=== PATIENT | female | born 2000 | race Two or more races ===

== ENCOUNTER 2022-05-26 22:17 | Emergency (ER) | payer SELFPAY ==
[~2022-05-26] VITALS: Ht 167.6 cm; Wt 99.5 kg
[~2022-05-26 22:17] MED LIST: NO HOME MEDS
[2022-05-26 22:18] VITALS: BP 144/88
== END 2022-05-27 07:58 | disposition left against medical advice (07) ==
LOC: ER 22:18
DX: M25.511 Pain in right shoulder (principal); Z53.21 Procedure and treatment not carried out due to patient leaving prior to being seen by health care provider
CPT/HCPCS: 73030; 99283

== ENCOUNTER 2024-07-14 23:00 | Emergency (ER) | payer BC ==
[~2024-07-14] VITALS: Ht 167.6 cm; Wt 90.9 kg
[2024-07-14 23:04] VITALS: BP 141/90; PULSE 78; TEMP 98.5; O2SAT 98
[2024-07-15] MEDS: HYDROcodone/acetaminophen 10/325mg tab PO ONE (01:02)
[2024-07-15 02:07] VITALS: RESP 18
== END 2024-07-15 02:10 | disposition home or self-care (01) ==
LOC: ER 23:01
DX: M25.562 Pain in left knee (principal)
CPT/HCPCS: 73564; 99283